=== PATIENT | male | born 1975 | race Asian ===

== ENCOUNTER 2019-05-27 16:03 | Outpatient (CLI) | payer BC ==
--- NOTE | 2019-05-27 16:55 | MRI ---
EXAM: Left knee MRI without contrast: HISTORY: Left knee pain, peripheral tear lateral meniscus COMPARISON: None FINDINGS: Multiplanar, multisequence MRI examination of the knees performed. No evidence for significant joint effusion. No evidence for significant articular cartilage loss Medial meniscus: Unremarkable. Lateral meniscus: Unremarkable. Anterior cruciate ligament:Intact. Posterior cruciate ligament: Intact. Medial collateral ligament complex: Intact. Lateral collateral ligament complex: Intact. Quadriceps and patellar tendons: Intact. Extensor mechanism: Unremarkable. No evidence for acute osteochondral defect or abnormal marrow signal. IMPRESSION: No evidence for significant acute internal derangement of the knee.
== END 2019-05-27 16:04 | disposition home or self-care (01) ==
LOC: SCSMRI 16:03
PROVIDERS: ATTEND Orthopaedic Surgery
DX: S83.262A Peripheral tear of lateral meniscus, current injury, left knee, initial encounter (principal)